=== PATIENT | female | born 1975 | race Two or more races ===

== ENCOUNTER 2022-12-11 09:20 | Emergency (ER) | payer MEDICAID, OTHER ==
[~2022-12-11] VITALS: Ht 157.5 cm; Wt 64.4 kg
[2022-12-11 09:23] VITALS: BP 134/94
[2022-12-11] MEDS ORDERED: KETOROLAC 15 MG/ML VIAL IM ONE (09:50)
[2022-12-11 10:33] LABS: BASOPHILS # (AUTO) 0.1 K/uL (0.00-0.22); BASOPHILS % (AUTO) 1.1 % (0.0-2.0); EOSINOPHILS # (AUTO) 0.5 K/uL (0-0.4); EOSINOPHILS % (AUTO) 5.6 % (0.0-4.0); HEMATOCRIT 32.7 % (36-48); HEMOGLOBIN 9.9 g/dL (12.0-16.0); LYMPHOCYTES # (AUTO) 1.6 K/uL (2.5-16.5); LYMPHOCYTES % (AUTO) 16.9 % (20.5-51.1); MEAN CORPUSCULAR HEMOGLOBIN 21 pg (27-31); MEAN CORPUSCULAR HGB CONC 30 g/dL (33-37); MEAN CORPUSCULAR VOLUME 67.6 fL (80-94); MONOCYTES # (AUTO) 0.8 K/uL (0.8-1.0); MONOCYTES % (AUTO) 8.8 % (1.7-9.3); NEUTROPHILS # (AUTO) 6.3 K/uL (1.8-7.7); NEUTROPHILS % (AUTO) 67.6 % (42.2-75.2); PLATELET COUNT (AUTO) 420 K/uL (140-450); RED BLOOD CELL COUNT(AUTO) 4.83 MIL/uL (4.20-5.40); RED CELL DISTRIBUTION WIDTH 19.2 % (11.6-13.7); WHITE BLOOD COUNT (AUTO) 9.3 K/uL (4.8-10.8)
[2022-12-11 10:36] LABS: ALBUMIN 3.4 g/dL (3.4-5.0); ANION GAP 9.2 (8-16); ASPARTATE AMINOTRANSFERASE 15 U/L (15-37); CARBON DIOXIDE 29.2 mmol/L (21-32); CHLORIDE 103 mmol/L (98-107); CREATININE 0.8 mg/dL (0.6-1.3); GFR ARICAN-AMERICAN 100 mL/min (>90); GLUCOSE 85 mg/dL (74-106); POTASSIUM 3.4 mmol/L (3.5-5.1); SODIUM SERUM 138 mmol/L (136-145); TOTAL BILIRUBIN 0.3 mg/dL (0.0-1.0); UREA NITROGEN, BLOOD 10 mg/dL (7-18)
--- NOTE | 2022-12-11 12:28 | NUR ---
Repeat trop dropped off at lab.
[2022-12-11] MEDS ORDERED: BENZ200C4 PO (13:21)
[2022-12-11] MEDS ORDERED: ALBU0.0912 IH (13:21)
[2022-12-11 13:30] VITALS: BP 134/94
== END 2022-12-11 13:30 | disposition home or self-care (01) ==
LOC: MED 09:20
DX: J06.9 Acute upper respiratory infection, unspecified (principal); R07.9 Chest pain, unspecified; Z91.011 Allergy to milk products; Z79.899 Other long term (current) drug therapy
CPT/HCPCS: 36415; 71045; 80053; 81025; 84484; 85025; 93005; 96372; 99285; J1885